=== PATIENT | male | born 1955 | race Caucasian/White ===

== ENCOUNTER → 2020-11-10 | Outpatient (CLI) | payer MEDICARE | END | disposition home or self-care (01) | LOC: RAD 08:21 | PROVIDERS: ATTEND Physician Assistant | DX: M17.0 Bilateral primary osteoarthritis of knee (principal); M76.891 Other specified enthesopathies of right lower limb, excluding foot; M25.561 Pain in right knee | CPT/HCPCS: 73565 ==

== ENCOUNTER 2021-07-11 02:55 | Inpatient (IN) | payer MEDICARE, MEDICAID ==
[~2021-07-11] VITALS: Ht 177.8 cm; Wt 117.9 kg
[2021-07-11 03:39] LABS: BG BASE EXCESS -1.6 mmol/L (-2.0-2.0); BG DEOXYHEMOGLOBIN 2.9 % (0.0-5.0); BG FRACTION INSPIRED OXYGEN 40; BG HCO3 ACT 22.4 mmol/L (22.0-26.0); BG METHEMOGLOBIN 0.1 % (0.0-1.5); BG OXYGEN SATURATION 97.1 % (92.0-98.5); BG PCO2 34.9 mmHg (35.0-45.0); BG PH 7.425 (7.350-7.450); BG PO2 99.7 mmHg (75.0-100.0); BG SAMPLE SITE RIGHT RADIAL; BG TOTAL HEMOGLOBIN 10.5 g/dL (12.0-18.0); BG VENT MODE NASAL CANNULA
[2021-07-11 04:25] LABS: BASOPHILS % 0.7 % (0.0-2.0); EOSINOPHILS % 2.8 % (0.0-5.0); HEMATOCRIT. 24.7 % (42.0-52.0); HEMOGLOBIN. 8.2 g/dL (14.0-18.0); LYMPHOCYTES % 12.3 % (20.0-50.0); MEAN CORPUSCULAR VOLUME 84.2 fL (80.0-94.0); MEAN PLATELET VOLUME 9.1 fl (7.4-10.4); NEUTROPHILS % 76.2 % (40.0-76.0); PLATELET 275 x1000/uL (130-400); RED BLOOD CELL COUNT 2.93 mill/uL (4.7-6.1); RED CELL DISTRIBUTION WIDTH 15.1 % (11.6-14.6)
[2021-07-11 04:37] LABS: CHLORIDE 108 mEq/L (98-107)
[2021-07-11] MEDS ORDERED: CEFTRIAXONE 1 G PREMIX 50 ML IV SCH (13:00)
[2021-07-11] MEDS: FUROSEMIDE 40MG/4ML VIAL IVP SCH (13:57)
[2021-07-11] MEDS ORDERED: DEXAMETHASONE 10 MG/ML VIAL IV SCH (14:30)
[2021-07-11 19:00] VITALS: BP 149/81
[2021-07-11 20:00] VITALS: BP 149/81
[2021-07-11] MEDS ORDERED: DEXTROSE 50% WATER 50ML SYRINGE IV PRN (22:15)
[2021-07-11] MEDS ORDERED: IPRATROPIUM/ALBUTEROL 0.5-3(2.5)MG/3ML NEB HHN PRN (22:15)
[2021-07-11] MEDS ORDERED: METF-416 MT (23:09)
[2021-07-11] MEDS ORDERED: HYDR-4009 MT (23:10)
[2021-07-11] MEDS ORDERED: SERT50TA PO (23:10)
[2021-07-12] VITALS: BP 115/70
[2021-07-12] MEDS ORDERED: INFLUENZA VACCINE 05/PF 0.5 ML SYRINGE IM ONE (02:00)
[2021-07-12] MEDS ORDERED: PNEUMOCOCCAL 23-VAL P-SAC VAC 0.5 ML IM ONE (02:00)
[2021-07-12 04:00] VITALS: BP 133/86
[2021-07-12] MEDS: BLOOD SUGAR DIAGNOSTIC STRIP TEST SCH ×4 (07:20→21:00)
[2021-07-12 07:27] LABS: BASOPHILS % 0.3 % (0.0-2.0); EOSINOPHILS % 0.1 % (0.0-5.0); HEMATOCRIT. 31.7 % (42.0-52.0); HEMOGLOBIN. 10.4 g/dL (14.0-18.0); LYMPHOCYTES % 9.1 % (20.0-50.0); MEAN CORPUSCULAR HEMOGLOBIN 27.4 pg (28.0-32.0); MEAN CORPUSCULAR VOLUME 83.7 fL (80.0-94.0); MEAN PLATELET VOLUME 9.8 fl (7.4-10.4); MONOCYTES % 7.1 % (2.0-8.0); NEUTROPHILS % 83.4 % (40.0-76.0); PLATELET 362 x1000/uL (130-400); RED BLOOD CELL COUNT 3.78 mill/uL (4.7-6.1)
[2021-07-12 08:00] VITALS: BP 136/60
[2021-07-12] MEDS: FUROSEMIDE 40MG/4ML VIAL IVP SCH (08:59)
[2021-07-12] MEDS: METFORMIN HCL 500MG TABLET PO SCH ×2 (09:00→18:45)
[2021-07-12] MEDS: SERTRALINE HCL 50MG TABLET PO SCH (09:00)
[2021-07-12] MEDS: INSULIN LISPRO 100 UNITS/ML SUBCUT SCH ×4 (09:01→22:18)
[2021-07-12] MEDS: HYDROCODONE/ACETAMINOPHEN 10/325MG TABLET PO PRN (09:02)
[2021-07-12 11:56] LABS: TOTAL IRON BINDING CAPACITY 226 ug/dL (250-450)
[2021-07-12 12:00] VITALS: BP 119/78
[2021-07-12] MEDS ORDERED: GUAIFENESIN 200MG/10ML SUGAR FREE UDC PO PRN (13:45)
[2021-07-12] MEDS: CEFTRIAXONE 1,000 MG in DEXTROSE 5% WATER 50 ML IV SCH (14:14)
[2021-07-12] MEDS ORDERED: INSULIN GLARGINE UD 100 UNITS/ML SYR SUBCUT SCH ×2 (15:00→22:00)
[2021-07-12] MEDS: BENZONATATE 100MG CAPSULE PO SCH ×2 (15:15→22:18)
[2021-07-12 16:00] VITALS: BP 125/80
[2021-07-12 18:43] LABS: *AMPHETAMINES SCREEN URINE NEGATIVE (NEGATIVE); *BARBITURATES SCREEN URINE NEGATIVE (NEGATIVE); *BENZODIAZEPINES SCREEN URINE NEGATIVE (NEGATIVE); *COCAINE SCREEN URINE PRESUMTIVE POSITIVE (NEGATIVE)
[2021-07-12 18:44] LABS: CANNABINOID URINE SCREEN NEGATIVE (NEGATIVE); METHADONE URINE SCREEN NEGATIVE (NEGATIVE); OPIATES URINE SCREEN PRESUMTIVE POSITIVE (NEGATIVE); PHENCYCLIDINE URINE SCREEN NEGATIVE (NEGATIVE)
[2021-07-12] MEDS: FERROUS SULFATE 325MG TABLET PO SCH (18:45)
[2021-07-12 20:00] VITALS: BP 141/95
[2021-07-12] MEDS: IPRATROPIUM/ALBUTEROL 0.5-3(2.5)MG/3ML NEB HHN SCH (22:03)
[2021-07-12] MEDS: BUDESONIDE 0.5MG/2ML NEB HHN SCH (22:03)
[2021-07-12] MEDS: INSULIN GLARGINE UD 100 UNITS/ML SYR SUBCUT SCH (22:18)
[2021-07-12] MEDS: ZOLPIDEM TARTRATE 5MG TABLET PO PRN (22:19)
[2021-07-13 00:28] VITALS: BP 138/82
[2021-07-13] MEDS: IPRATROPIUM/ALBUTEROL 0.5-3(2.5)MG/3ML NEB HHN SCH (01:38)
[2021-07-13] MEDS: HYDROCODONE/ACETAMINOPHEN 10/325MG TABLET PO PRN (02:31)
[2021-07-13 04:00] VITALS: BP 99/62
[2021-07-13] MEDS: BENZONATATE 100MG CAPSULE PO SCH ×3 (06:21→22:00)
[2021-07-13] MEDS: BLOOD SUGAR DIAGNOSTIC STRIP TEST SCH ×4 (07:20→21:59)
[2021-07-13 07:57] LABS: BASOPHILS % 0.7 % (0.0-2.0); EOSINOPHILS % 2.6 % (0.0-5.0); HEMATOCRIT. 30.7 % (42.0-52.0); HEMOGLOBIN. 10.3 g/dL (14.0-18.0); LYMPHOCYTES % 16.2 % (20.0-50.0); MEAN CORPUSCULAR HEMOGLOBIN 28.1 pg (28.0-32.0); MEAN PLATELET VOLUME 9.9 fl (7.4-10.4); MONOCYTES % 6.9 % (2.0-8.0); NEUTROPHILS % 73.6 % (40.0-76.0); PLATELET 360 x1000/uL (130-400); RED BLOOD CELL COUNT 3.66 mill/uL (4.7-6.1); RED CELL DISTRIBUTION WIDTH 15.1 % (11.6-14.6)
[2021-07-13 08:00] VITALS: BP 121/77
[2021-07-13] MEDS: DOCUSATE SODIUM 250MG CAPSULE PO SCH (09:00)
[2021-07-13] MEDS: INSULIN GLARGINE UD 100 UNITS/ML SYR SUBCUT SCH ×2 (09:53→21:59)
[2021-07-13] MEDS: INSULIN LISPRO 100 UNITS/ML SUBCUT SCH ×4 (09:53→21:57)
[2021-07-13] MEDS: FERROUS SULFATE 325MG TABLET PO SCH ×3 (09:54→16:58)
[2021-07-13] MEDS: SERTRALINE HCL 50MG TABLET PO SCH (09:54)
[2021-07-13] MEDS: METFORMIN HCL 500MG TABLET PO SCH (09:54)
[2021-07-13] MEDS: FUROSEMIDE 40MG/4ML VIAL IVP SCH (09:55)
[2021-07-13 12:00] VITALS: BP 120/70
[2021-07-13 16:00] VITALS: BP 136/87
[2021-07-13] MEDS: CEFTRIAXONE 1,000 MG in DEXTROSE 5% WATER 50 ML IV SCH (16:56)
[2021-07-13] MEDS: ENOXAPARIN 40MG/0.4ML SYR SUBCUT SCH (16:56)
[2021-07-13] MEDS: PREDNISONE 20MG TABLET PO SCH (17:40)
[2021-07-13 20:00] VITALS: BP 125/81
[2021-07-13] MEDS ORDERED: LORAZEPAM 0.5MG TABLET PO PRN (20:30)
[2021-07-13] MEDS: ZOLPIDEM TARTRATE 5MG TABLET PO PRN (21:56)
[2021-07-14 00:34] VITALS: BP 135/69
[2021-07-14] MEDS: HYDROCODONE/ACETAMINOPHEN 10/325MG TABLET PO PRN (03:27)
[2021-07-14 04:10] VITALS: BP 127/56
[2021-07-14 08:00] VITALS: BP 127/66
[2021-07-14] MEDS: FERROUS SULFATE 325MG TABLET PO SCH ×3 (08:04→17:09)
[2021-07-14] MEDS: BLOOD SUGAR DIAGNOSTIC STRIP TEST SCH ×4 (08:04→21:19)
[2021-07-14] MEDS: FUROSEMIDE 40MG/4ML VIAL IVP SCH (08:04)
[2021-07-14] MEDS: SERTRALINE HCL 50MG TABLET PO SCH (08:04)
[2021-07-14] MEDS: PREDNISONE 20MG TABLET PO SCH ×2 (08:04→16:08)
[2021-07-14] MEDS: INSULIN LISPRO 100 UNITS/ML SUBCUT SCH ×4 (08:08→22:13)
[2021-07-14] MEDS: BENZONATATE 100MG CAPSULE PO SCH ×3 (08:17→22:12)
[2021-07-14] MEDS: DOCUSATE SODIUM 250MG CAPSULE PO SCH (08:30)
[2021-07-14] MEDS: BUDESONIDE 0.5MG/2ML NEB HHN SCH ×3 (08:32→20:25)
[2021-07-14] MEDS: IPRATROPIUM/ALBUTEROL 0.5-3(2.5)MG/3ML NEB HHN SCH ×3 (09:42→20:25)
[2021-07-14] MEDS: INSULIN GLARGINE UD 100 UNITS/ML SYR SUBCUT SCH ×2 (10:41→22:14)
[2021-07-14 12:00] VITALS: BP 130/69
[2021-07-14] MEDS ORDERED: NALOXONE HCL 0.4MG/ML VIAL IV PRN (14:45)
[2021-07-14] MEDS: CEFTRIAXONE 1,000 MG in DEXTROSE 5% WATER 50 ML IV SCH (15:17)
[2021-07-14] MEDS: ENOXAPARIN 40MG/0.4ML SYR SUBCUT SCH (15:18)
[2021-07-14 15:46] VITALS: BP 133/66
[2021-07-14 20:00] VITALS: BP 158/67
[2021-07-14] MEDS: ZOLPIDEM TARTRATE 5MG TABLET PO PRN (22:18)
[2021-07-15] VITALS: BP 115/65
[2021-07-15] MEDS: IPRATROPIUM/ALBUTEROL 0.5-3(2.5)MG/3ML NEB HHN SCH ×4 (02:27→20:49)
[2021-07-15 04:00] VITALS: BP 125/60
[2021-07-15] MEDS: BENZONATATE 100MG CAPSULE PO SCH ×2 (06:08→15:00)
[2021-07-15] MEDS: BLOOD SUGAR DIAGNOSTIC STRIP TEST SCH ×4 (06:24→21:00)
[2021-07-15 08:00] VITALS: BP 120/60
[2021-07-15] MEDS: FUROSEMIDE 40MG/4ML VIAL IVP SCH (08:07)
[2021-07-15] MEDS: DOCUSATE SODIUM 250MG CAPSULE PO SCH ×2 (08:07→11:09)
[2021-07-15] MEDS: SERTRALINE HCL 50MG TABLET PO SCH (08:07)
[2021-07-15] MEDS: FERROUS SULFATE 325MG TABLET PO SCH ×3 (08:07→17:08)
[2021-07-15] MEDS: PREDNISONE 20MG TABLET PO SCH ×2 (08:07→17:00)
[2021-07-15] MEDS: INSULIN LISPRO 100 UNITS/ML SUBCUT SCH ×4 (08:11→21:00)
[2021-07-15] MEDS: INSULIN GLARGINE UD 100 UNITS/ML SYR SUBCUT SCH ×2 (10:16→21:44)
[2021-07-15] MEDS: HYDROCODONE/ACETAMINOPHEN 10/325MG TABLET PO PRN (11:10)
[2021-07-15 11:55] VITALS: BP 124/62
[2021-07-15] MEDS ORDERED: ONDANSETRON HCL 4MG/2ML INJ IV PRN (13:15)
[2021-07-15] MEDS ORDERED: LACTULOSE 20G/30ML UDC PO NR (13:30)
[2021-07-15] MEDS: ENOXAPARIN 40MG/0.4ML SYR SUBCUT SCH (14:00)
[2021-07-15] MEDS: CEFTRIAXONE 1,000 MG in DEXTROSE 5% WATER 50 ML IV SCH (14:00)
[2021-07-15 16:00] VITALS: BP 128/64
[2021-07-15] MEDS: ZOLPIDEM TARTRATE 5MG TABLET PO PRN (20:27)
[2021-07-16] VITALS: BP 148/70
[2021-07-16] MEDS: HYDROCODONE/ACETAMINOPHEN 10/325MG TABLET PO PRN ×3 (00:54→21:47)
[2021-07-16] MEDS: IPRATROPIUM/ALBUTEROL 0.5-3(2.5)MG/3ML NEB HHN SCH ×4 (02:38→20:02)
[2021-07-16 04:00] VITALS: BP 128/55
[2021-07-16] MEDS: BLOOD SUGAR DIAGNOSTIC STRIP TEST SCH ×4 (06:45→21:00)
[2021-07-16 08:00] VITALS: BP 138/94
[2021-07-16] MEDS: FUROSEMIDE 40MG/4ML VIAL IVP SCH (08:47)
[2021-07-16] MEDS: SERTRALINE HCL 50MG TABLET PO SCH (08:47)
[2021-07-16] MEDS: FERROUS SULFATE 325MG TABLET PO SCH ×3 (08:48→18:36)
[2021-07-16] MEDS: DOCUSATE SODIUM 250MG CAPSULE PO SCH (08:48)
[2021-07-16] MEDS: PREDNISONE 20MG TABLET PO SCH ×2 (08:48→18:36)
[2021-07-16] MEDS: INSULIN LISPRO 100 UNITS/ML SUBCUT SCH ×4 (08:49→22:09)
[2021-07-16 10:46] VITALS: BP 134/59
[2021-07-16] MEDS: INSULIN GLARGINE UD 100 UNITS/ML SYR SUBCUT SCH ×2 (11:19→22:10)
[2021-07-16] MEDS: ENOXAPARIN 40MG/0.4ML SYR SUBCUT SCH (14:12)
[2021-07-16] MEDS: CEFTRIAXONE 1,000 MG in DEXTROSE 5% WATER 50 ML IV SCH (15:48)
[2021-07-16 16:00] VITALS: BP 122/77
[2021-07-16 20:00] VITALS: BP 124/78
[2021-07-17] VITALS: BP 130/81
[2021-07-17] MEDS: IPRATROPIUM/ALBUTEROL 0.5-3(2.5)MG/3ML NEB HHN SCH ×3 (01:54→14:25)
[2021-07-17 04:00] VITALS: BP 131/81
[2021-07-17] MEDS: FERROUS SULFATE 325MG TABLET PO SCH ×2 (06:25→13:43)
[2021-07-17] MEDS: BLOOD SUGAR DIAGNOSTIC STRIP TEST SCH ×2 (06:25→12:41)
[2021-07-17 08:00] VITALS: BP 153/85
[2021-07-17] MEDS: SERTRALINE HCL 50MG TABLET PO SCH (09:04)
[2021-07-17] MEDS: FUROSEMIDE 40MG/4ML VIAL IVP SCH (09:04)
[2021-07-17] MEDS: DOCUSATE SODIUM 250MG CAPSULE PO SCH (09:04)
[2021-07-17] MEDS: PREDNISONE 20MG TABLET PO SCH (09:13)
[2021-07-17] MEDS: INSULIN LISPRO 100 UNITS/ML SUBCUT SCH ×2 (09:43→13:51)
[2021-07-17] MEDS: INSULIN GLARGINE UD 100 UNITS/ML SYR SUBCUT SCH (09:59)
[2021-07-17 12:00] VITALS: BP 103/70
[2021-07-17] MEDS ORDERED: HYDROCODONE/ACETAMINOPHEN 10/325MG TABLET PO PRN (13:00)
[2021-07-17] MEDS: ENOXAPARIN 40MG/0.4ML SYR SUBCUT SCH (13:43)
[2021-07-17] MEDS ORDERED: DOCU250C14 MT (14:04)
[2021-07-17] MEDS ORDERED: FLUT1DIS3 INH (14:04)
[2021-07-17] MEDS ORDERED: IPRA3AMP9 NEB (14:04)
[2021-07-17] MEDS ORDERED: FERR-63 PO (14:04)
[2021-07-17] MEDS ORDERED: SERT50TA PO (14:04)
[2021-07-17] MEDS ORDERED: INSU100I28 SQ (14:04)
[2021-07-17] MEDS ORDERED: ALBU18HF2 IH (14:04)
[2021-07-17] MEDS ORDERED: HYDR-4001 MT (14:05)
[2021-07-17 17:09] VITALS: BP 103/70
== END 2021-07-17 18:35 | disposition home or self-care (01) | DRG 205 ==
LOC: ER 02:55 → 6WST 05:48 → ENRESERV 14:22 → 6EST 07-16 10:44
PROVIDERS: ADMIT Internal Medicine; ATTEND Internal Medicine
DX: J68.0 Bronchitis and pneumonitis due to chemicals, gases, fumes and vapors (principal); J96.01 Acute respiratory failure with hypoxia; E43 Unspecified severe protein-calorie malnutrition; I50.33 Acute on chronic diastolic (congestive) heart failure; N17.0 Acute kidney failure with tubular necrosis; I13.0 Hypertensive heart and chronic kidney disease with heart failure and stage 1 through stage 4 chronic kidney disease, or unspecified chronic kidney disease; J44.0 Chronic obstructive pulmonary disease with (acute) lower respiratory infection; I42.9 Cardiomyopathy, unspecified; D64.9 Anemia, unspecified; E11.22 Type 2 diabetes mellitus with diabetic chronic kidney disease; E11.65 Type 2 diabetes mellitus with hyperglycemia; E87.8 Other disorders of electrolyte and fluid balance, not elsewhere classified; F14.10 Cocaine abuse, uncomplicated; F17.210 Nicotine dependence, cigarettes, uncomplicated; I27.29 Other secondary pulmonary hypertension; N18.9 Chronic kidney disease, unspecified; Z20.822 Contact with and (suspected) exposure to COVID-19; E66.01 Morbid (severe) obesity due to excess calories; Z83.3 Family history of diabetes mellitus; Z99.81 Dependence on supplemental oxygen; Z79.891 Long term (current) use of opiate analgesic; Z79.899 Other long term (current) drug therapy; Z71.6 Tobacco abuse counseling; Z68.37 Body mass index [BMI] 37.0-37.9, adult
CPT/HCPCS: 36415; 36600; 71045; 78582; 80048; 80053; 80305; 82375; 82728; 82805; 82962; 83036; 83540; 83550; 83605; 83880; 84145; 84484; 85025; 85379; 87426; 90686; 90732; 93005; 93306; 94640; 99291; C1893; C9803; J0696; J1100; J1650; J1815; J1940; J2405; J7040; J7060; J7512; J7626; U0003; U0005

== ENCOUNTER 2021-08-11 06:52 | Inpatient (IN) | payer MEDICARE, MEDICAID ==
[~2021-08-11] VITALS: Ht 172.7 cm; Wt 112.5 kg
[~2021-08-11 06:52] MED LIST: ALBU18HF2 IH; DOCU250C14 MT; FERR-63 PO; FLUT1DIS3 INH; HYDR-4001 MT; INSU100I28 SQ; IPRA3AMP9 NEB; SERT50TA PO
[2021-08-11] MEDS ORDERED: IPRATROPIUM BROMIDE (0.02%) 0.5MG/2.5ML NEB HHN STA (09:07)
[2021-08-11] MEDS ORDERED: ALBUTEROL (0.083%) 2.5MG/3ML NEB HHN STA (09:07)
[2021-08-11] MEDS ORDERED: PREDNISONE 20MG TABLET PO STA (09:07)
[2021-08-11 09:47] LABS: BASOPHILS % 0.9 % (0.0-2.0); EOSINOPHILS % 1.8 % (0.0-5.0); HEMATOCRIT. 30.9 % (42.0-52.0); LYMPHOCYTES % 13.3 % (20.0-50.0); MEAN CORPUSCULAR HEMOGLOBIN 27.3 pg (28.0-32.0); MEAN CORPUSCULAR VOLUME 84.4 fL (80.0-94.0); MEAN PLATELET VOLUME 8.4 fl (7.4-10.4); MONOCYTES % 8.1 % (2.0-8.0); NEUTROPHILS % 75.9 % (40.0-76.0); PLATELET 406 x1000/uL (130-400); RED BLOOD CELL COUNT 3.66 mill/uL (4.7-6.1); RED CELL DISTRIBUTION WIDTH 16.2 % (11.6-14.6)
[2021-08-11 09:53] LABS: CHLORIDE 107 mEq/L (98-107)
[2021-08-11] MEDS ORDERED: CEFTRIAXONE 1 G PREMIX 50 ML IV ONE (11:15)
[2021-08-11] MEDS ORDERED: CLINDAMYCIN 600 MG in DEXTROSE 5% WATER 50 ML IV ONE (11:15)
[2021-08-11] MEDS ORDERED: CLINDAMYCIN 600MG PREMIX 50 ML IV NR (11:15)
[2021-08-11 13:46] LABS: CLARITY URINE CLEAR (CLEAR); COLOR URINE YELLOW (YELLOW); KETONES URINE NEGATIVE (NEGATIVE); LEUKOCYTE ESTERASE URINE NEGATIVE (NEGATIVE); NITRITE URINE NEGATIVE (NEGATIVE); OCCULT BLOOD URINE 3+ (NEGATIVE); PH URINE 6.5 (4.5-8.0); PROTEIN URINE 4+ (NEGATIVE); UROBILINOGEN URINE 0.2 E.U./dL (0.2-1.0)
[2021-08-11] MEDS ORDERED: DEXTROSE 50% WATER 50ML SYRINGE IV PRN (20:00)
[2021-08-11] MEDS ORDERED: ONDANSETRON HCL 4MG/2ML INJ IV PRN (20:00)
[2021-08-11] MEDS ORDERED: ACETAMINOPHEN 325MG TABLET PO PRN (20:00)
[2021-08-11] MEDS ORDERED: IPRATROPIUM/ALBUTEROL 0.5-3(2.5)MG/3ML NEB HHN PRN (20:00)
[2021-08-11] MEDS: BLOOD SUGAR DIAGNOSTIC STRIP TEST SCH (20:37)
[2021-08-11 21:30] VITALS: BP 152/97
[2021-08-11] MEDS: INSULIN LISPRO 100 UNITS/ML SUBCUT SCH (22:35)
[2021-08-12] MEDS ORDERED: *PATIENT'S OWN MEDICATION STORAGE XX SCH (02:30)
[2021-08-12] MEDS: BLOOD SUGAR DIAGNOSTIC STRIP TEST SCH ×4 (06:58→20:35)
[2021-08-12] MEDS ORDERED: IPRATROPIUM/ALBUTEROL 0.5-3(2.5)MG/3ML NEB HHN PRN (07:00)
[2021-08-12 08:00] VITALS: BP 141/89
[2021-08-12] MEDS ORDERED: NALOXONE HCL 0.4MG/ML VIAL IV PRN (08:00)
[2021-08-12] MEDS ORDERED: CEFTRIAXONE 1 G PREMIX 50 ML IV SCH (09:00)
[2021-08-12] MEDS: DOCUSATE SODIUM 250MG CAPSULE PO SCH ×2 (09:00→16:03)
[2021-08-12] MEDS: FERROUS SULFATE 325MG TABLET PO SCH ×3 (09:30→17:58)
[2021-08-12] MEDS: CEFTRIAXONE 1,000 MG in DEXTROSE 5% WATER 50 ML IV SCH (09:31)
[2021-08-12] MEDS: SERTRALINE HCL 50MG TABLET PO SCH (09:31)
[2021-08-12] MEDS: INSULIN GLARGINE UD 100 UNITS/ML SYR SUBCUT SCH ×2 (09:32→22:05)
[2021-08-12] MEDS: INSULIN LISPRO 100 UNITS/ML SUBCUT SCH ×4 (09:32→20:35)
[2021-08-12] MEDS: HYDROCODONE/ACETAMINOPHEN 5/325MG TABLET PO PRN (10:11)
[2021-08-12 12:00] VITALS: BP 122/81
[2021-08-12] MEDS ORDERED: FUROSEMIDE 40MG/4ML VIAL IVP SCH (13:15)
[2021-08-12] MEDS ORDERED: SODIUM CHLORIDE 0.9% 1,000 ML IV SCH (15:45)
[2021-08-12] MEDS: ENOXAPARIN 40MG/0.4ML SYR SUBCUT SCH (15:54)
[2021-08-12 16:00] VITALS: BP 107/74
[2021-08-12 20:00] VITALS: BP 98/62
[2021-08-12] MEDS ORDERED: ZOLPIDEM TARTRATE 5MG TABLET PO PRN (21:00)
[2021-08-13] VITALS: BP 149/94
[2021-08-13 04:00] VITALS: BP 123/66
[2021-08-13] MEDS: BLOOD SUGAR DIAGNOSTIC STRIP TEST SCH ×4 (06:47→21:37)
[2021-08-13] MEDS: INSULIN LISPRO 100 UNITS/ML SUBCUT SCH ×4 (07:42→21:00)
[2021-08-13 08:00] VITALS: BP 106/79
[2021-08-13] MEDS: SERTRALINE HCL 50MG TABLET PO SCH (08:38)
[2021-08-13] MEDS: DOCUSATE SODIUM 250MG CAPSULE PO SCH ×2 (08:38→17:43)
[2021-08-13] MEDS: FERROUS SULFATE 325MG TABLET PO SCH ×3 (08:38→17:43)
[2021-08-13] MEDS: HYDROCODONE/ACETAMINOPHEN 5/325MG TABLET PO PRN ×2 (09:27→14:52)
[2021-08-13] MEDS: INSULIN GLARGINE UD 100 UNITS/ML SYR SUBCUT SCH ×2 (10:00→21:47)
[2021-08-13] MEDS: CEFTRIAXONE 1,000 MG in DEXTROSE 5% WATER 50 ML IV SCH (10:00)
[2021-08-13 12:00] VITALS: BP 125/79
[2021-08-13] MEDS: ENOXAPARIN 40MG/0.4ML SYR SUBCUT SCH (14:09)
[2021-08-13 16:00] VITALS: BP 119/80
[2021-08-13 20:00] VITALS: BP 124/80
[2021-08-14] VITALS: BP 129/85
[2021-08-14 04:00] VITALS: BP_SYST 131; BP_SYST 138; BP_DIAS 87
[2021-08-14] MEDS: BLOOD SUGAR DIAGNOSTIC STRIP TEST SCH ×4 (06:41→21:00)
[2021-08-14] MEDS: INSULIN LISPRO 100 UNITS/ML SUBCUT SCH ×4 (07:38→21:00)
[2021-08-14 08:00] VITALS: BP 133/81
[2021-08-14] MEDS: SERTRALINE HCL 50MG TABLET PO SCH (08:07)
[2021-08-14] MEDS: DOCUSATE SODIUM 250MG CAPSULE PO SCH ×2 (08:07→17:13)
[2021-08-14] MEDS: FERROUS SULFATE 325MG TABLET PO SCH ×3 (08:07→17:15)
[2021-08-14] MEDS: HYDROCODONE/ACETAMINOPHEN 5/325MG TABLET PO PRN ×2 (08:18→17:18)
[2021-08-14 09:06] LABS: ANTI-DNA DOUBLE STRANDED QUANT 4 IU/mL (0-9); ANTI-NUCLEAR ANTIBODIES DIRECT Positive (Negative)
[2021-08-14] MEDS: CEFTRIAXONE 1,000 MG in DEXTROSE 5% WATER 50 ML IV SCH (10:00)
[2021-08-14 12:00] VITALS: BP 135/83
[2021-08-14] MEDS: ENOXAPARIN 40MG/0.4ML SYR SUBCUT SCH (15:44)
[2021-08-14 16:00] VITALS: BP 110/75
[2021-08-14 19:50] VITALS: BP 139/79
[2021-08-14] MEDS: INSULIN GLARGINE UD 100 UNITS/ML SYR SUBCUT SCH (22:41)
[2021-08-15] VITALS: BP 139/80
[2021-08-15 04:00] VITALS: BP 144/77
[2021-08-15] MEDS: BLOOD SUGAR DIAGNOSTIC STRIP TEST SCH ×2 (07:20→12:20)
[2021-08-15] MEDS: INSULIN LISPRO 100 UNITS/ML SUBCUT SCH ×2 (07:50→12:50)
[2021-08-15 07:58] VITALS: BP 140/81
[2021-08-15] MEDS: FERROUS SULFATE 325MG TABLET PO SCH ×2 (09:25→12:50)
[2021-08-15] MEDS: DOCUSATE SODIUM 250MG CAPSULE PO SCH (09:25)
[2021-08-15] MEDS: SERTRALINE HCL 50MG TABLET PO SCH (09:25)
[2021-08-15] MEDS: INSULIN GLARGINE UD 100 UNITS/ML SYR SUBCUT SCH (10:00)
[2021-08-15] MEDS: CEFTRIAXONE 1,000 MG in DEXTROSE 5% WATER 50 ML IV SCH (10:17)
[2021-08-15] MEDS: ENOXAPARIN 40MG/0.4ML SYR SUBCUT SCH (13:52)
[2021-08-15 14:15] VITALS: BP 143/75
[2021-08-16 08:07] LABS: A/G RATIO 0.7 (0.7-1.7); ALBUMIN 2.6 g/dL (2.9-4.4); ALPHA-1-GLOBULIN 0.3 g/dL (0.0-0.4); ALPHA-2-GLOBULIN 1.2 g/dL (0.4-1.0); BETA GLOBULIN 1.1 g/dL (0.7-1.3); GAMMA GLOBULINS 1.2 g/dL (0.4-1.8); GLOBULIN TOTAL 3.8 g/dL (2.2-3.9); M-SPIKE Not Observed g/dL (Not Observed); TOTAL PROTEIN SERUM 6.4 g/dL (6.0-8.5)
== END 2021-08-15 17:28 | disposition left against medical advice (07) | DRG 682 ==
LOC: ER 06:52 → 6EST 11:25 → ENRESERV 16:36
PROVIDERS: ADMIT Internal Medicine; ATTEND Internal Medicine
DX: N17.9 Acute kidney failure, unspecified (principal); J96.01 Acute respiratory failure with hypoxia; E43 Unspecified severe protein-calorie malnutrition; I50.33 Acute on chronic diastolic (congestive) heart failure; J18.9 Pneumonia, unspecified organism; I13.0 Hypertensive heart and chronic kidney disease with heart failure and stage 1 through stage 4 chronic kidney disease, or unspecified chronic kidney disease; J44.0 Chronic obstructive pulmonary disease with (acute) lower respiratory infection; E11.22 Type 2 diabetes mellitus with diabetic chronic kidney disease; E66.9 Obesity, unspecified; F17.210 Nicotine dependence, cigarettes, uncomplicated; F14.90 Cocaine use, unspecified, uncomplicated; N18.9 Chronic kidney disease, unspecified; D63.8 Anemia in other chronic diseases classified elsewhere; F43.10 Post-traumatic stress disorder, unspecified; M19.90 Unspecified osteoarthritis, unspecified site; Z20.822 Contact with and (suspected) exposure to COVID-19; Z89.421 Acquired absence of other right toe(s); Z68.37 Body mass index [BMI] 37.0-37.9, adult; Z71.6 Tobacco abuse counseling; Z71.51 Drug abuse counseling and surveillance of drug abuser
CPT/HCPCS: 36415; 71045; 76770; 80048; 80053; 81003; 82575; 82962; 83970; 84100; 84153; 84155; 84156; 84165; 85025; 86038; 86140; 86160; 86225; 87426; 87804; 94640; 97162; 99285; C1893; J0696; J1650; J1815; J1940; J3490; J7030; J7060; J7512; G0103